=== PATIENT | female | born 1980 | race Caucasian/White ===

== ENCOUNTER 2020-02-08 06:37 | Day surgery (SDC) | payer OTHER ==
[~2020-02-08 06:37] MED LIST: Lactated Ringers 1,000 ML IV SCH
[2020-02-08] MEDS ORDERED: Scopolamine 1.5 MG Transdermal Patch TRDERM PRN (07:22)
--- NOTE | 2020-02-08 07:26 | PCM.PREANE ---
Preanesthetic Assessment - Anesthesia/Transfusion/Family Hx Anesthesia History: Prior Anesthesia Reaction Type of Anesthesia Reaction: Excessive Nausea/Vomiting Family History of Anesthesia Reaction: No Transfusion History: No Prior Transfusion(s) Intubation History: Unknown - Review of Systems General: No Symptoms Pulmonary: No Symptoms Cardiovascular: No Symptoms Gastrointestinal: No Symptoms Neurological: No Symptoms Other: Reports: None - Physical Assessment Height: 5 ft 2 in Weight: 52.163 kg ASA Class: 2 Mental Status: Alert & Oriented x3 Airway Class: Mallampati = 1 Dentition: Reports: Normal Dentition (veneers x6 upper front teeth) Thyro-Mental Finger Breadths: 3 Mouth Opening Finger Breadths: 3 ROM/Head Extension: Full Lungs: Clear to Auscultation, Normal Respiratory Effort Cardiovascular: Regular Rate, Regular Rhythm - Allergies Allergies/Adverse Reactions: Allergies Allergy/AdvReac Type Severity Reaction Status Date / Time codeine Allergy Hives Verified 02/04/20 11:40 Sulfa (Sulfonamide Allergy Hives Verified 02/04/20 11:41 Antibiotics) - Blood Blood Available: No - Anesthesia Plan Pre-Op Medication Ordered: None - Acknowledgements Anesthesia Type Planned: General Anesthesia Pt an Appropriate Candidate for the Planned Anesthesia: Yes Alternatives and Risks of Anesthesia Discussed w Pt/Guardian: Yes Pt/Guardian Understands and Agrees with Anesthesia Plan: Yes PreAnesthesia Questionnaire HEENT History: Reports: Other (See Below) Other HEENT History: states has 6 upper front dental veneers Respiratory History: Reports: None Gastrointestinal History: Reports: Irritable Bowel Syndrome Genitourinary History: Reports: None GYNECOLOGICAL ASSISTANT History: Reports: Other (See Below) (endometriosis, lt. ovarian cyst) Musculoskeletal History: Reports: Fracture, Neck Pain, Chronic Other Musculoskeletal History: states had fractured right wrist Neurological History: Reports: Migraines Psychiatric History: Reports: None Endocrine/Metabolic History: Reports: Hypothyroidism Hematologic History: Reports: None Immunologic History: Reports: None Oncologic (Cancer) History: Reports: Malignant Melanoma Other Oncologic History: right ear Dermatologic History: Reports: Eczema, Other (See Below) (fibrocystic breast) - Infectious Disease History Infectious Disease History: Reports: None - Past Surgical History Head Surgeries/Procedures: Reports: None HEENT Surgical History: Reports: Adenoidectomy, Oral Surgery, Tonsillectomy Other HEENT Surgeries/Procedures: wisdom teeth removed, has 1 lower left dental implant Cardiovascular Surgical History: Reports: None GI Surgical History: Reports: None Female Surgical History: Reports: LEEP, Other (See Below) Other Female Surgeries/Procedures: states had left ovary removed and had 2 laparscopic surgeries for endometriosis Endocrine Surgical History: Reports: None Neurological Surgical History: Reports: None Musculoskeletal Surgical History: Reports: Carpal Tunnel, Other (See Below) Other Musculoskeletal Surgeries/Procedures:: states had bilateral carpal, meidal, and ulnar tunnel surgery and ulner nerve transposition Oncologic Surgical History: - SUBSTANCE USE Tobacco Use Status *Q: Never Tobacco User - HOME MEDS Home Medications: Home Meds Cyanocobalamin (Vitamin B-12) [Cyanocobalamin Injection] 1 injection IM ASDIRECTED 02/04/20 [History] Ergocalciferol (Vitamin D2) [Ergocalciferol] 1 tab PO ASDIRECTED 02/04/20 [History] Escitalopram Oxalate 1 tab PO DAILY 02/04/20 [History] Levothyroxine [Synthroid] 1 tab PO DAILY 02/04/20 [History] Onabotulinumtoxina [Botox] 1 injection IM ASDIRECTED 02/04/20 [History] Verapamil [Calan SR] 1 tab PO DAILY 02/04/20 [History] - CURRENT (IN HOUSE) MEDS Current Meds: Current Medications Lactated Ringer's (Ringers, Lactated) 1,000 mls @ 125 mls/hr IV ASDIRECTED [facility]
[2020-02-08] MEDS ORDERED: Midazolam 1 MG/ML 2 ML SDV ONE (07:28)
[2020-02-08] MEDS ORDERED: fentaNYL 250 MCG/5 ML SDV ONE (07:28)
[2020-02-08] MEDS ORDERED: Ondansetron 4 MG/2 ML SDV ONE (07:28)
[2020-02-08] MEDS ORDERED: Lidocaine 2% 5 ML SDV ONE (07:28)
[2020-02-08] MEDS ORDERED: Rocuronium Bromide 50 MG/5 ML Syringe ONE (07:28)
[2020-02-08] MEDS ORDERED: Propofol 200 MG/20 ML SDV ONE (07:28)
[2020-02-08] MEDS ORDERED: Dexamethasone 4 MG/ML 5 ML MDV ONE (07:28)
[2020-02-08] MEDS ORDERED: Octyl 2-Cyanoacrylate 1 Tube ONE (07:31)
[2020-02-08] MEDS ORDERED: Bupivacaine 0.25% 10 ML SDV ONE (07:31)
[2020-02-08] MEDS ORDERED: Ketamine 500 mg/10 ML MDV ONE (07:32)
[2020-02-08 07:39] LABS: BLOOD UREA NITROGEN,BUN 6 mg/dL (7.0-18.0); CHLORIDE,CL 108 mmol/L (98-107); GLUCOSE RANDOM 100 mg/dL (74-106); POTASSIUM,K 4.2 mmol/L (3.5-5.1); SODIUM,NA 141 mmol/L (136-145)
[2020-02-08] MEDS ORDERED: diphenhydrAMINE 50 MG/ML SDV ONE (07:47)
[2020-02-08] MEDS ORDERED: ePHEDrine 50 MG/ML SDV ONE (08:02)
[2020-02-08] MEDS ORDERED: fentaNYL 100 MCG/2 ML SDV IVPUSH PRN (08:36)
[2020-02-08] MEDS ORDERED: Glycopyrrolate 0.2 MG/ML SDV ONE (08:37)
[2020-02-08] MEDS ORDERED: Ketorolac 30 MG/ML SDV ONE (08:37)
[2020-02-08] MEDS ORDERED: Sugammadex Sodium 200 MG/2 ML VIAL ONE (08:44)
--- NOTE | 2020-02-08 09:32 | PCM.POSTAN ---
POST ANESTHESIA ASSESSMENT - MENTAL STATUS Mental Status: Alert, Oriented - VITAL SIGNS Vital Signs: Last Vital Signs Temp 36.5 C 02/08/20 09:08 Pulse 84 02/08/20 09:28 Resp 14 02/08/20 09:28 BP 111/65 02/08/20 09:28 Pulse Ox 98 02/08/20 09:28 - RESPIRATORY Respiratory Status: Respiratory Rate WNL, Airway Patent, O2 Saturation Stable - CARDIOVASCULAR CV Status: Pulse Rate WNL, Blood Pressure Stable - GASTROINTESTINAL GI Status: No Symptoms - PAIN Pain Score: 4 - POST OP HYDRATION Hydration Status: Adequate & Stable
--- NOTE | 2020-02-08 09:37 | PCM.OPNOTE ---
- General Post-Op/Procedure Note Date of Surgery/Procedure: 02/08/20 Operative Procedure(s): laparoscopic left salpingoophorectomy with lysis of adhesions and ablation of endometriosis. Findings: dense adhesions between the left ovary and medial leaf of the broad ligament above the level of the ureter, with associated dark implants of endometriosis over lying the ureter. There were multiple small dark implants of endometriosis in the posterior cul de sac, left uterosacral ligament and right ovarian fossa, that were ablated with the harmonic scalpel The cecum had some surrounding adhesions, appendix not identified liver appears normal. Pre Op Diagnosis: pelvic pain, endometriosis, pelvic adhesions. Post-Op Diagnosis: Same Anesthesia Technique: General ET Tube Primary Surgeon: Rekha Cortez Secondary Surgeon: Alysa Morrissey Anesthesia Provider: Demetra Nazario Polyethylene Bag Machine Operator: Maura Ledezma Reason Polyethylene Bag Machine Operator Was Necessary: Known adhesions on prior operative report, anticipated possible need for lysis of bowel adhesions by general surgeon Pathology: left tube and ovary Fluid Replacement, Intraop: 1,100 EBL in mLs: 5 Complications: None Known Condition: Good Free Text/Narrative:: Intake & Output 02/07/20 02/08/20 02/08/20 22:59 06:59 14:59 Intake Total 1150 Output Total 100 Balance 1050
[2020-02-08] MEDS ORDERED: Acetaminophen 1,000 MG in Premix Bag 1 BAG IV ONE (10:17)
--- NOTE | 2020-02-08 10:39 | PCM48HPAN ---
Post Anesthesia Note - EVALUATION WITHIN 48HRS OF ANESTHETIC Vital Signs in Normal Range: Yes Patient Participated in Evaluation: Yes Respiratory Function Stable: Yes Airway Patent: Yes Cardiovascular Function Stable: Yes Hydration Status Stable: Yes Pain Control Satisfactory: Yes Nausea and Vomiting Control Satisfactory: Yes Mental Status Recovered: Yes Vital Signs: Last Vital Signs Temp 36.5 C 02/08/20 09:08 Pulse 84 02/08/20 09:28 Resp 14 02/08/20 09:28 BP 111/65 02/08/20 09:28 Pulse Ox 98 02/08/20 09:28 - COMMENTS/OBSERVATIONS Free Text/Narrative:: No anesthesia problems
--- NOTE | 2020-02-08 13:13 | OR ---
SURGEON: Rekha Cortez M.D. DATE OF PROCEDURE: 02/08/2020 PREOPERATIVE DIAGNOSIS: Pelvic pain in the left adnexal region with a known history of pelvic adhesions and a known history of endometriosis. POSTOPERATIVE DIAGNOSES: 1. Pelvic endometriosis. 2. Pelvic adhesions. PRIMARY SURGEON: Rekha Cortez MD DIRECTOR AGRICULTURAL SERVICES: Alysa Morrissey MD ANESTHESIA: General endotracheal. FLUIDS: 1100 mL of crystalloid. ESTIMATED BLOOD LOSS: Minimal. PROCEDURE PERFORMED: Laparoscopic left salpingo-oophorectomy with lysis of adhesions and ablation of endometriosis. COMPLICATIONS: None known. DISPOSITION: Stable, to Recovery. BRIEF HISTORY: This is a 39-year-old female with a known history of endometriosis. She has previously had laparoscopic-proven endometriosis, and she had a left ovarian cystectomy in the past with documented adhesions. She continued to have severe pain in the left lower quadrant which is both continuous, but exacerbated with her cycle, and she desires to have the left ovary and tube removed and treatment of endometriosis as is safe during laparoscopic surgery. Risks were discussed including bleeding; infection; injury to bowel, bladder, blood vessels, or other organs; risk of thromboembolic event; and risk of anesthesia. She also understands that there is a possibility of requiring a laparotomy if the ovary is adhesed immediately on the ureter or if there are extensive bowel adhesions. I did discuss the case with Dr. Morrissey. I had the patient proceed with a bowel prep preoperatively, and Dr. Morrissey agreed to assist me with the case in case bowel involvement was found. Additionally, she understands that if endometriosis is in a place that cannot be treated surgically, she may need followup treatment with medication. Understanding all these risks and issues, she does desire to proceed. DESCRIPTION OF PROCEDURE: With the patient in dorsal lithotomy position, under adequate general endotracheal anesthesia, the abdomen was prepped with chlorhexidine. The perineum and vagina were prepped with Betadine and draped in the usual fashion for laparoscopic surgery. The bladder was drained with a red Pires catheter. SCDs were in place. The arms were tucked. The abdomen was draped, and an appropriate time-out was held. Bimanual examination revealed a mobile 6-week size uterus. Speculum was placed in the vagina. Hulka tenaculum was placed onto the cervix. The power mule operator's gloves were changed after the speculum was removed, and attention was turned to the umbilicus where 10 mL of 0.25% Marcaine was injected inferior to the umbilicus. A vertical 1 cm incision was made with a scalpel. The anterior abdominal wall was elevated, and Metzenbaum scissors and hemostats were utilized to dissect down to the level of the fascia which was identified and was tagged with 0 Polysorb. The fascial incision was made vertically using Rm scissors, and the peritoneum was entered bluntly. The disposable Chad port was then placed, and the abdomen was insufflated. There was no evidence of any trauma from the port placement site. The patient was placed in Trendelenburg position, and the uterus was elevated. The pelvis was inspected. An additional port was placed in the midline at the site of a prior incision approximately 3 cm cephalad from the pubic symphysis utilizing the Marcaine and making a 5 mm incision and then a 5 mm port. A new port was placed 2 cm medial and cephalad from the anterior superior iliac spine on the left. Using this, the pelvis was inspected with findings as follows: The anterior cul- de-sac was clear. The right tube and ovary appeared normal. There was a small retraction near the right ureter. The right uterosacral ligament appeared normal. The posterior cul-de-sac had approximately 6 implants of dark endometriosis. The left uterosacral ligament had an implant of dark endometriosis. The left ovary was densely adherent to the medial leaf of the broad ligament just above the level of the ureter. Below this and overlying the ureter were extensive dark implants of endometriosis. There was dense adhesion between the ovary and the medial leaf of the broad ligament. The left tube appeared normal. The liver appeared normal. The cecum had surrounding filmy adhesions, but appeared normal. The appendix was not identified. The LigaSure was then utilized to safely cauterize and incise the dense adhesion between the ovary and the medial leaf of the broad ligament. I was able to pull the tissue well away from the level of the ureter in order to accomplish the dissection. The infundibulopelvic ligament was then doubly cauterized using the LigaSure and cut. The mesosalpinx was followed proximally to the uterine cornua. The tube was transected at the uterine cornua, and the tube and ovary were then removed with an EndoCatch bag. The pelvis was then inspected. The ball tip was used with the Harmonic Scalpel to coagulate and evaporate the small implants of endometriosis in the posterior cul-de-sac and the left uterosacral ligament. This being completed, the incision site where the tube and ovary were removed was inspected under low pressure and was hemostatic. The abdomen was completely desufflated. The ports were removed. The retained suture on the fascia of the infraumbilical incision was utilized to close the fascia in a running fashion, and the skin was incisions were closed with subcuticular suture of 4-0 Monocryl. Final sponge, needle, and instrument counts were correct. The Hulka tenaculum was removed from the cervix. The cervix was hemostatic. There were no known complications. The patient was transferred to Recovery in good condition. BOOGIE / SIENNA /[id number]
== END 2020-02-08 10:45 | disposition home or self-care (01) ==
LOC: MW.SDS 06:37
PROVIDERS: ATTEND Obstetrics & Gynecology
DX: N80.8 Other endometriosis (principal); N73.6 Female pelvic peritoneal adhesions (postinfective); E03.9 Hypothyroidism, unspecified; Z79.890 Hormone replacement therapy; Z79.899 Other long term (current) drug therapy; Z98.890 Other specified postprocedural states; Z88.5 Allergy status to narcotic agent; Z88.2 Allergy status to sulfonamides
CPT/HCPCS: 58661; 58662; 80048; 84703; 85027; 86850; 86900; 86901; A9270; J0131; J1100; J1200; J1885; J2001; J2250; J2405; J2704; J3010; J3490; J7120; 00840; 88305

== ENCOUNTER 2021-02-06 08:10 | Day surgery (SDC) | payer OTHER ==
--- NOTE | 2021-02-06 08:07 | PCM.PREANE ---
Preanesthetic Assessment - Anesthesia/Transfusion/Family Hx Anesthesia History: Prior Anesthesia Without Reaction Transfusion History: No Prior Transfusion(s) Intubation History: Unknown - Review of Systems General: No Symptoms Pulmonary: No Symptoms Cardiovascular: No Symptoms Gastrointestinal: No Symptoms Neurological: No Symptoms Other: Reports: None - Physical Assessment NPO Status Date: 02/06/21 NPO Status Time: 00:00 Height: 5 ft 2.5 in Weight: 126 lb ASA Class: 2 Mental Status: Alert & Oriented x3 Airway Class: Mallampati = 1 Dentition: Reports: Normal Dentition Thyro-Mental Finger Breadths: 3 Mouth Opening Finger Breadths: 3 ROM/Head Extension: Full Lungs: Clear to Auscultation, Normal Respiratory Effort Cardiovascular: Regular Rate, Regular Rhythm - Allergies Allergies/Adverse Reactions: Allergies Allergy/AdvReac Type Severity Reaction Status Date / Time codeine Allergy Hives Verified 02/02/21 09:03 Sulfa (Sulfonamide Allergy Hives Verified 02/02/21 09:03 Antibiotics) - Acknowledgements Anesthesia Type Planned: General Anesthesia Pt an Appropriate Candidate for the Planned Anesthesia: Yes Alternatives and Risks of Anesthesia Discussed w Pt/Guardian: Yes Pt/Guardian Understands and Agrees with Anesthesia Plan: Yes PreAnesthesia Questionnaire HEENT History: Reports: Other (See Below) Other HEENT History: 1 dental implant Cardiovascular History: Reports: None Respiratory History: Reports: None Gastrointestinal History: Reports: Irritable Bowel Syndrome Genitourinary History: Reports: None 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 Musculoskeletal History: Reports: Fracture Other Musculoskeletal History: states had fractured right wrist Neurological History: Reports: Migraines Psychiatric History: Reports: None Endocrine/Metabolic History: Reports: Hypothyroidism Hematologic History: Reports: None Immunologic History: Reports: None Oncologic (Cancer) History: Reports: Malignant Melanoma Other Oncologic History: right ear Dermatologic History: Reports: Eczema, Other (See Below) Other Dermatologic History: dermatitis - Infectious Disease History Infectious Disease History: Reports: None - Past Surgical History Head Surgeries/Procedures: Reports: None HEENT Surgical History: Reports: Adenoidectomy, Oral Surgery, Tonsillectomy Other HEENT Surgeries/Procedures: wisdom teeth removed, has 1 lower left dental implant Cardiovascular Surgical History: Reports: None Respiratory Surgical History: Reports: None GI Surgical History: Reports: None Female Surgical History: Reports: Breast Implant, LEEP, Other (See Below) Other Female Surgeries/Procedures: states had left ovary removed and had 2 laparscopic surgeries for endometriosis, hx laparoscopic left S&O with lysis of adhesions and ablation of endometriosis Endocrine Surgical History: Reports: None Neurological Surgical History: Reports: None Musculoskeletal Surgical History: Reports: Carpal Tunnel, Other (See Below) Other Musculoskeletal Surgeries/Procedures:: states had bilateral carpal, meidal, and ulnar tunnel surgery and ulner nerve transposition Dermatological Surgical History: Reports: Skin Biopsy - SUBSTANCE USE Tobacco Use Status *Q: Never Tobacco User - HOME MEDS Home Medications: Home Meds Escitalopram Oxalate 5 mg PO DAILY 02/04/20 [History] Levothyroxine [Synthroid] 50 mcg PO DAILY 02/04/20 [History] Verapamil [Calan SR] 120 mg PO DAILY 02/04/20 [History] Doxycycline [Vibramycin] 100 mg PO BID 02/02/21 [History] L.acidoph,Paracasei, B.lactis [Probiotic] 1 tab PO DAILY 02/02/21 [History] Multivitamin 1 tab PO DAILY 02/02/21 [History] - CURRENT (IN HOUSE) MEDS Current Meds: Current Medications Albuterol (Albuterol 0.083% 2.5 Mg/3 Ml Neb Soln) 2.5 mg NEB ONETIME PRN PRN Reason: Wheezing Droperidol (Droperidol 5 Mg/2 Ml Sdv) 0.625 mg IVPUSH ONETIME PRN PRN Reason: Nausea/Vomiting Fentanyl (Fentanyl 100 Mcg/2 Ml Sdv) 50 mcg IVPUSH Q5M PRN PRN Reason: Pain (mild 1-3) Hydromorphone HCl (Hydromorphone 1 Mg/Ml Syringe) 1 mg IVPUSH Q10M PRN PRN Reason: Pain (moderate 4-6) Metoclopramide HCl (Metoclopramide 10 Mg/2 Ml Sdv) 10 mg IVPUSH ONETIME PRN PRN Reason: Nausea/Vomiting Morphine Sulfate (Morphine 4 Mg/Ml Vial) 2 mg IVPUSH Q10M PRN PRN Reason: Pain (severe 7-10) Naloxone HCl (Naloxone 0.4 Mg/Ml Sdv) 0.1 mg IVPUSH ASDIRECTED PRN PRN Reason: Respiratory Depression Ondansetron HCl (Ondansetron 4 Mg/2 Ml Sdv) 4 mg IVPUSH ONETIME PRN PRN Reason: Nausea/Vomiting Discontinued Medications Cefazolin Sodium/Dextrose 1 gm (/ Premix) 50 mls @ 100 mls/hr IV ONETIME ONE Stop: 02/06/21 07:40 Scopolamine (Scopolamine 1.5 Mg Transdermal Patch) Confirm Administered Dose 1.5 mg .ROUTE .STK-MED ONE Stop: 02/06/21 06:21
[~2021-02-06 08:10] MED LIST changes: +Albuterol 0.083% 2.5 MG/3 ML Neb Soln NEB PRN; +HYDROmorphone 1 MG/ML Syringe IVPUSH PRN; -Lactated Ringers 1,000 ML IV SCH; +Metoclopramide 10 MG/2 ML SDV IVPUSH PRN; +Morphine 4 MG/ML VIAL IVPUSH PRN; +Naloxone 0.4 MG/ML SDV IVPUSH PRN; +Ondansetron 4 MG/2 ML SDV IVPUSH PRN; +Scopolamine 1.5 MG Transdermal Patch ONE; +ceFAZolin 1 GM in Premix Bag 1 BAG IV ONE; +fentaNYL 100 MCG/2 ML SDV IVPUSH PRN
[2021-02-06] MEDS ORDERED: fentaNYL 100 MCG/2 ML SDV ONE (08:44)
[2021-02-06] MEDS ORDERED: diphenhydrAMINE 50 MG/ML SDV ONE (08:45)
[2021-02-06] MEDS ORDERED: Famotidine 20 MG/2 ML SDV ONE (08:46)
[2021-02-06] MEDS ORDERED: Sodium Chloride 0.9% 20 ML ONE (08:50)
[2021-02-06] MEDS ORDERED: Pregabalin 75 MG Cap ONE (08:54)
[2021-02-06] MEDS ORDERED: fentaNYL 250 MCG/5 ML SDV ONE (08:56)
[2021-02-06] MEDS ORDERED: Propofol 200 MG/20 ML SDV ONE (08:56)
[2021-02-06 09:14] LABS: BLOOD UREA NITROGEN,BUN 12 mg/dL (7.0-18.0); CARBON DIOXIDE,CO2 25.1 mmol/L (21.0-32.0); CHLORIDE,CL 106 mmol/L (98-107); GLUCOSE RANDOM 100 mg/dL (74-106); POTASSIUM,K 3.9 mmol/L (3.5-5.1); SODIUM,NA 141 mmol/L (136-145)
[2021-02-06] MEDS ORDERED: Lactated Ringers 1,000 ML IV SCH (09:30)
[2021-02-06] MEDS ORDERED: Bupivacaine 0.25% 10 ML SDV ONE (09:51)
[2021-02-06] MEDS ORDERED: Methylene Blue 50 MG/10 ML Ampule ONE (09:51)
[2021-02-06] MEDS ORDERED: Ondansetron 4 MG/2 ML SDV ONE (12:12)
[2021-02-06] MEDS ORDERED: Ketorolac 30 MG/ML SDV ONE (12:12)
[2021-02-06] MEDS ORDERED: Dexamethasone 4 MG/ML 5 ML MDV ONE (12:12)
[2021-02-06] MEDS ORDERED: Glycopyrrolate 0.2 MG/ML SDV ONE (12:12)
[2021-02-06] MEDS ORDERED: Rocuronium Bromide 50 MG/5 ML Syringe ONE (12:12)
[2021-02-06] MEDS ORDERED: ePHEDrine 50 MG/ML SDV ONE (12:12)
[2021-02-06] MEDS ORDERED: Sugammadex Sodium 200 MG/2 ML VIAL ONE (12:12)
[2021-02-06] MEDS ORDERED: Fluorescein 5 ML Vial ONE (12:13)
[2021-02-06] MEDS ORDERED: HYDROmorphone 2 MG/ML Syringe ONE ×2 (12:44→13:00)
--- NOTE | 2021-02-06 13:15 | PCM48HPAN ---
Post Anesthesia Note - EVALUATION WITHIN 48HRS OF ANESTHETIC Vital Signs in Normal Range: Yes Patient Participated in Evaluation: Yes Respiratory Function Stable: Yes Airway Patent: Yes Cardiovascular Function Stable: Yes Hydration Status Stable: Yes Pain Control Satisfactory: Yes Nausea and Vomiting Control Satisfactory: Yes Mental Status Recovered: Yes Vital Signs: Last Vital Signs Temp 97.2 F 02/06/21 13:02 Pulse 98 02/06/21 13:12 Resp 9 L 02/06/21 13:12 BP 104/62 02/06/21 13:12 Pulse Ox 100 02/06/21 13:12
--- NOTE | 2021-02-06 13:15 | PCM.POSTAN ---
POST ANESTHESIA ASSESSMENT - MENTAL STATUS Mental Status: Somnolent - VITAL SIGNS Vital Signs: Last Vital Signs Temp 97.2 F 02/06/21 13:02 Pulse 98 02/06/21 13:12 Resp 9 L 02/06/21 13:12 BP 104/62 02/06/21 13:12 Pulse Ox 100 02/06/21 13:12 - RESPIRATORY Respiratory Status: Respiratory Rate WNL, Airway Patent, O2 Saturation Stable - CARDIOVASCULAR CV Status: Pulse Rate WNL, Blood Pressure Stable - GASTROINTESTINAL GI Status: No Symptoms - POST OP HYDRATION Hydration Status: Adequate & Stable
[2021-02-06] MEDS ORDERED: Acetaminophen/oxyCODONE 325-5 MG Tab PO PRN ×2 (13:16)
[2021-02-06] MEDS ORDERED: Ondansetron 4 MG/2 ML SDV IVPUSH PRN (13:16)
[2021-02-06] MEDS ORDERED: Ketorolac 30 MG/ML SDV IVPUSH ONE (13:16)
[2021-02-06] MEDS ORDERED: Promethazine 25 MG/ML SDV IM PRN (13:16)
--- NOTE | 2021-02-06 13:16 | PCM.OPNOTE ---
- General Post-Op/Procedure Note Date of Surgery/Procedure: 02/06/21 Operative Procedure(s): laparoscopically assisted vaginal hysterectomy with right salpingoophorectomy and cystoscopy. Findings: extensive powder burn appearing endometriosis, left pelvic peritoneum over lying ureter, Bahman Masters window right anterior pelvis. On cystoscopy there is copious flow of bright green urine bilaterally and no evidence of trauma to bladder mucosa Pre Op Diagnosis: Endometriosis, pelvic pain Post-Op Diagnosis: Same Anesthesia Technique: General ET Tube Primary Surgeon: Rekha Cortez Secondary Surgeon: Aniceto Rosen Anesthesia Provider: Danilo Hardy Oral And Maxillofacial Surgeon: Akhil Angeles Pathology: uterus and right tube and ovary Fluid Replacement, Intraop: 2,300 Output, Urine Amount: 125 EBL in mLs: 50 Complications: None Known. Condition: Good
[2021-02-06] MEDS ORDERED: diphenhydrAMINE 50 MG/ML SDV IVPUSH ONE (13:43)
[2021-02-06] MEDS: Ketorolac 30 MG/ML SDV IVPUSH SCH (20:16)
[2021-02-06] MEDS ORDERED: Doxycycline 100 MG Cap PO SCH (21:00)
[2021-02-07] MEDS: Ketorolac 30 MG/ML SDV IVPUSH SCH ×3 (00:43→06:38)
[2021-02-07] MEDS ORDERED: Levothyroxine 50 MCG Tab PO SCH (07:30)
[2021-02-07 08:12] LABS: BLOOD UREA NITROGEN,BUN 6 mg/dL (7.0-18.0); CARBON DIOXIDE,CO2 22.9 mmol/L (21.0-32.0); CHLORIDE,CL 105 mmol/L (98-107); GLUCOSE RANDOM 122 mg/dL (74-106); POTASSIUM,K 3.7 mmol/L (3.5-5.1); SODIUM,NA 137 mmol/L (136-145)
--- NOTE | 2021-02-07 08:20 | PCM.SURGPN ---
- General Info Date of Service: 02/07/21 Date of Surgery/Procedure: 02/06/21 POD#: 1 Post-Op Diagnosis: endometriosis Functional Status: Reports: Pain Controlled, Tolerating Diet, Ambulating, Urinating - Review of Systems General: Reports: No Symptoms HEENT: Reports: No Symptoms Pulmonary: Reports: No Symptoms Cardiovascular: Reports: No Symptoms Gastrointestinal: Reports: No Symptoms Genitourinary: Reports: No Symptoms Musculoskeletal: Reports: No Symptoms Skin: Reports: No Symptoms Neurological: Reports: No Symptoms Psychiatric: Reports: No Symptoms - Patient Data Vitals - Most Recent: Last Vital Signs Temp 36.1 C 02/07/21 05:00 Pulse 89 02/07/21 05:00 Resp 15 02/07/21 05:00 BP 93/60 02/07/21 05:00 Pulse Ox 93 L 02/07/21 05:00 Weight - Most Recent: 57.153 kg I&O - Last 24 Hours: Intake & Output 02/06/21 02/07/21 02/07/21 22:59 06:59 14:59 Intake Total 120 1000 Output Total 350 2750 Balance -230 -1750 Lab Results Last 24 Hrs: Laboratory Results - last 24 hr 02/06/21 02/06/21 02/06/21 Range/Units 08:00 08:00 08:15 WBC 6.25 (4.0-11.0) K/uL RBC 4.52 (4.30-5.90) M/uL Hgb 14.8 (12.0-16.0) g/dL Hct 43.2 (36.0-46.0) % MCV 95.6 (80.0-98.0) fL MCH 32.7 H (27.0-32.0) pg MCHC 34.3 (31.0-37.0) g/dL RDW Std Deviation 40.9 (28.0-62.0) fl RDW Coeff of Bhavna 12 (11.0-15.0) % Plt Count 329 (150-400) K/uL MPV 8.80 (7.40-12.00) fL Neut % (Auto) (48.0-80.0) % Lymph % (Auto) (16.0-40.0) % Platte % (Auto) (0.0-15.0) % Eos % (Auto) (0.0-7.0) % Baso % (Auto) (0.0-1.5) % Neut # (Auto) (1.4-5.7) K/uL Lymph # (Auto) (0.6-2.4) K/uL Platte # (Auto) (0.0-0.8) K/uL Eos # (Auto) (0.0-0.7) K/uL Baso # (Auto) (0.0-0.1) K/uL Nucleated RBC % 0.0 /100WBC Nucleated RBCs # 0 K/uL Sodium (136-145) mmol/L Potassium (3.5-5.1) mmol/L Chloride (98-107) mmol/L Carbon Dioxide (21.0-32.0) mmol/L BUN (7.0-18.0) mg/dL Creatinine (0.6-1.0) mg/dL Est Cr Clr Drug Dosing mL/min Estimated GFR (MDRD) ml/min Glucose (74-106) mg/dL Calcium (8.5-10.1) mg/dL HCG, Qual (NEG) Urine RBC 0-2 (0-2/HPF) Urine WBC 0-2 (0-5/HPF) Ur Epithelial Cells FEW (NONE-FEW) Urine Bacteria FEW (NEGATIVE) SARS-CoV-2 RNA (DESIRAE) NEGATIVE (NEGATIVE) Blood Type Antibody Screen 02/06/21 02/06/21 02/06/21 Range/Units 08:15 08:15 08:15 WBC (4.0-11.0) K/uL RBC (4.30-5.90) M/uL Hgb (12.0-16.0) g/dL Hct (36.0-46.0) % MCV (80.0-98.0) fL MCH (27.0-32.0) pg MCHC (31.0-37.0) g/dL RDW Std Deviation (28.0-62.0) fl RDW Coeff of Bhavna (11.0-15.0) % Plt Count (150-400) K/uL MPV (7.40-12.00) fL Neut % (Auto) (48.0-80.0) % Lymph % (Auto) (16.0-40.0) % Platte % (Auto) (0.0-15.0) % Eos % (Auto) (0.0-7.0) % Baso % (Auto) (0.0-1.5) % Neut # (Auto) (1.4-5.7) K/uL Lymph # (Auto) (0.6-2.4) K/uL Platte # (Auto) (0.0-0.8) K/uL Eos # (Auto) (0.0-0.7) K/uL Baso # (Auto) (0.0-0.1) K/uL Nucleated RBC % /100WBC Nucleated RBCs # K/uL Sodium 141 (136-145) mmol/L Potassium 3.9 (3.5-5.1) mmol/L Chloride 106 (98-107) mmol/L Carbon Dioxide 25.1 (21.0-32.0) mmol/L BUN 12 (7.0-18.0) mg/dL Creatinine 0.8 (0.6-1.0) mg/dL Est Cr Clr Drug Dosing 76.39 mL/min Estimated GFR (MDRD) > 60.0 ml/min Glucose 100 (74-106) mg/dL Calcium 9.1 (8.5-10.1) mg/dL HCG, Qual NEGATIVE (NEG) Urine RBC (0-2/HPF) Urine WBC (0-5/HPF) Ur Epithelial Cells (NONE-FEW) Urine Bacteria (NEGATIVE) SARS-CoV-2 RNA (DESIRAE) (NEGATIVE) Blood Type O POSITIVE Antibody Screen NEGATIVE 02/07/21 02/07/21 Range/Units 06:36 06:36 WBC 10.25 (4.0-11.0) K/uL RBC 3.52 L (4.30-5.90) M/uL Hgb 11.4 L (12.0-16.0) g/dL Hct 33.8 L (36.0-46.0) % MCV 96.0 (80.0-98.0) fL MCH 32.4 H (27.0-32.0) pg MCHC 33.7 (31.0-37.0) g/dL RDW Std Deviation 41.2 (28.0-62.0) fl RDW Coeff of Bhavna 12 (11.0-15.0) % Plt Count 272 (150-400) K/uL MPV 9.20 (7.40-12.00) fL Neut % (Auto) 76.0 (48.0-80.0) % Lymph % (Auto) 17.1 (16.0-40.0) % Platte % (Auto) 6.6 (0.0-15.0) % Eos % (Auto) 0.1 (0.0-7.0) % Baso % (Auto) 0.2 (0.0-1.5) % Neut # (Auto) 7.8 H (1.4-5.7) K/uL Lymph # (Auto) 1.8 (0.6-2.4) K/uL Platte # (Auto) 0.7 (0.0-0.8) K/uL Eos # (Auto) 0.0 (0.0-0.7) K/uL Baso # (Auto) 0.0 (0.0-0.1) K/uL Nucleated RBC % 0.0 /100WBC Nucleated RBCs # 0 K/uL Sodium 137 (136-145) mmol/L Potassium 3.7 (3.5-5.1) mmol/L Chloride 105 (98-107) mmol/L Carbon Dioxide 22.9 (21.0-32.0) mmol/L BUN 6 L (7.0-18.0) mg/dL Creatinine 0.6 (0.6-1.0) mg/dL Est Cr Clr Drug Dosing 101.85 mL/min Estimated GFR (MDRD) > 60.0 ml/min Glucose 122 H (74-106) mg/dL Calcium 8.1 L (8.5-10.1) mg/dL HCG, Qual (NEG) Urine RBC (0-2/HPF) Urine WBC (0-5/HPF) Ur Epithelial Cells (NONE-FEW) Urine Bacteria (NEGATIVE) SARS-CoV-2 RNA (DESIRAE) (NEGATIVE) Blood Type Antibody Screen Med Orders - Current: Current Medications Doxycycline Hyclate (Doxycycline 100 Mg Cap) 100 mg PO BID [facility] Last Admin: 02/06/21 20:20 Dose: Not Given Documented by: Escitalopram Oxalate (Escitalopram 10 Mg Tab) 5 mg PO DAILY [facility] Estradiol (Estradiol 0.05 Mg/24 Hr Weekly Patch) 0.05 mg TRDERM Q7D [facility] Lactated Ringer's (Ringers, Lactated) 1,000 mls @ 100 mls/hr IV ASDIRECTED [facility] Last Admin: 02/06/21 09:35 Dose: 100 mls/hr Documented by: Ketorolac Tromethamine (Ketorolac 30 Mg/Ml Sdv) 30 mg IVPUSH Q6H [facility] Stop: 02/11/21 13:16 Last Admin: 02/07/21 06:38 Dose: 30 mg Documented by: Levothyroxine Sodium (Levothyroxine 50 Mcg Tab) 50 mcg PO ACBREAKFAST [facility] Last Admin: 02/07/21 06:39 Dose: 50 mcg Documented by: Ondansetron HCl (Ondansetron 4 Mg/2 Ml Sdv) 4 mg IVPUSH Q6H PRN PRN Reason: Nausea/Vomiting Oxycodone/Acetaminophen (Acetaminophen/Oxycodone 325-5 Mg Tab) 1 tab PO Q4H PRN PRN Reason: Pain (moderate 4-6) Oxycodone/Acetaminophen (Acetaminophen/Oxycodone 325-5 Mg Tab) 2 tab PO Q4H PRN PRN Reason: Pain (moderate 4-6) Promethazine HCl (Promethazine 25 Mg/Ml Sdv) 25 mg IM Q6H PRN PRN Reason: Nausea/Vomiting Verapamil HCl (Verapamil 240 Mg Tab.Er) 120 mg PO DAILY [facility] Discontinued Medications Albuterol (Albuterol 0.083% 2.5 Mg/3 Ml Neb Soln) 2.5 mg NEB ONETIME PRN PRN Reason: Wheezing Bupivacaine HCl (Bupivacaine 0.25% 10 Ml Sdv) Confirm Administered Dose 20 ml .ROUTE .STK-MED ONE Stop: 02/06/21 09:52 Dexamethasone (Dexamethasone 4 Mg/Ml 5 Ml Mdv) Confirm Administered Dose 20 mg .ROUTE .STK-MED ONE Stop: 02/06/21 12:13 Diphenhydramine HCl (Diphenhydramine 50 Mg/Ml Sdv) Confirm Administered Dose 50 mg .ROUTE .STK-MED ONE Stop: 02/06/21 08:46 Diphenhydramine HCl (Diphenhydramine 50 Mg/Ml Sdv) 12.5 mg IVPUSH ONETIME ONE Stop: 02/06/21 13:44 Last Admin: 02/06/21 13:44 Dose: 12.5 mg Documented by: Droperidol (Droperidol 5 Mg/2 Ml Sdv) 0.625 mg IVPUSH ONETIME PRN PRN Reason: Nausea/Vomiting Ephedrine Sulfate (Ephedrine 50 Mg/Ml Sdv) Confirm Administered Dose 50 mg .ROUTE .STK-MED ONE Stop: 02/06/21 12:13 Famotidine (Famotidine 20 Mg/2 Ml Sdv) Confirm Administered Dose 20 mg .ROUTE .STK-MED ONE Stop: 02/06/21 08:47 Fentanyl (Fentanyl 100 Mcg/2 Ml Sdv) 50 mcg IVPUSH Q5M PRN PRN Reason: Pain (mild 1-3) Fentanyl (Fentanyl 100 Mcg/2 Ml Sdv) Confirm Administered Dose 100 mcg .ROUTE .STK-MED ONE Stop: 02/06/21 08:45 Fentanyl (Fentanyl 250 Mcg/5 Ml Sdv) Confirm Administered Dose 250 mcg .ROUTE .STK-MED ONE Stop: 02/06/21 08:57 Fluorescein Sodium (Fluorescein 5 Ml Vial) Confirm Administered Dose 5 ml .ROUTE .STK-MED ONE Stop: 02/06/21 12:14 Glycopyrrolate (Glycopyrrolate 0.2 Mg/Ml Sdv) Confirm Administered Dose 0.4 mg .ROUTE .STK-MED ONE Stop: 02/06/21 12:13 Hydromorphone HCl (Hydromorphone 1 Mg/Ml Syringe) 1 mg IVPUSH Q10M PRN PRN Reason: Pain (moderate 4-6) Hydromorphone HCl (Hydromorphone 2 Mg/Ml Syringe) Confirm Administered Dose 2 mg .ROUTE .STK-MED ONE Stop: 02/06/21 12:45 Hydromorphone HCl (Hydromorphone 2 Mg/Ml Syringe) Confirm Administered Dose 2 mg .ROUTE .STK-MED ONE Stop: 02/06/21 13:01 Cefazolin Sodium/Dextrose 1 gm (/ Premix) 50 mls @ 100 mls/hr IV ONETIME ONE Stop: 02/06/21 07:40 Last Admin: 02/06/21 17:26 Dose: Not Given Documented by: Sodium Chloride (Normal Saline) Confirm Administered Dose 20 mls @ as directed .ROUTE .STK-MED ONE Stop: 02/06/21 08:51 Cefazolin Sodium/Dextrose (Ancef) Confirm Administered Dose 50 mls @ as directed .ROUTE .STK-MED ONE Stop: 02/06/21 12:13 Acetaminophen (Ofirmev 1000 Mg/100 Ml) Confirm Administered Dose 100 mls @ as directed .ROUTE .STK-MED ONE Stop: 02/06/21 12:13 Ketorolac Tromethamine (Ketorolac 30 Mg/Ml Sdv) Confirm Administered Dose 30 mg .ROUTE .STK-MED ONE Stop: 02/06/21 12:13 Ketorolac Tromethamine (Ketorolac 30 Mg/Ml Sdv) 30 mg IVPUSH ONETIME ONE Stop: 02/06/21 13:17 Last Admin: 02/06/21 13:49 Dose: Not Given Documented by: Methylene Blue (Methylene Blue 50 Mg/10 Ml Ampule) Confirm Administered Dose 50 mg .ROUTE .STK-MED ONE Stop: 02/06/21 09:52 Metoclopramide HCl (Metoclopramide 10 Mg/2 Ml Sdv) 10 mg IVPUSH ONETIME PRN PRN Reason: Nausea/Vomiting Morphine Sulfate (Morphine 4 Mg/Ml Vial) 2 mg IVPUSH Q10M PRN PRN Reason: Pain (severe 7-10) Naloxone HCl (Naloxone 0.4 Mg/Ml Sdv) 0.1 mg IVPUSH ASDIRECTED PRN PRN Reason: Respiratory Depression Ondansetron HCl (Ondansetron 4 Mg/2 Ml Sdv) 4 mg IVPUSH ONETIME PRN PRN Reason: Nausea/Vomiting Ondansetron HCl (Ondansetron 4 Mg/2 Ml Sdv) Confirm Administered Dose 4 mg .ROUTE .STK-MED ONE Stop: 02/06/21 12:13 Pregabalin (Pregabalin 75 Mg Cap) Confirm Administered Dose 75 mg .ROUTE .STK- MED ONE Stop: 02/06/21 08:55 Last Admin: 02/06/21 09:17 Dose: 75 mg Documented by: Propofol (Propofol 200 Mg/20 Ml Sdv) Confirm Administered Dose 600 mg .ROUTE .STK-MED ONE Stop: 02/06/21 08:57 Rocuronium Hope (Rocuronium Hope 50 Mg/5 Ml Syringe) Confirm Administered Dose 50 mg .ROUTE .STK-MED ONE Stop: 02/06/21 12:13 Scopolamine (Scopolamine 1.5 Mg Transdermal Patch) Confirm Administered Dose 1.5 mg .ROUTE .STK-MED ONE Stop: 02/06/21 06:21 Last Admin: 02/06/21 09:16 Dose: 1.5 mg Documented by: Sugammadex Sodium (Sugammadex Sodium 200 Mg/2 Ml Vial) Confirm Administered Dose 200 mg .ROUTE .STK-MED ONE Stop: 02/06/21 12:13 - Exam Wound/Incisions: Dressing Dry and Intact General: Alert, Oriented Neck: Supple Lungs: Clear to Auscultation, Normal Respiratory Effort Cardiovascular: Regular Rate, Regular Rhythm GI/Abdominal Exam: Normal Bowel Sounds, Soft, Non-Tender, No Organomegaly, No Distention, No Abnormal Bruit Extremities: Non-Tender, No Pedal Edema Skin: Warm, Dry, Intact Psy/Mental Status: Alert, Normal Affect, Normal Mood Sepsis Event Note - Evaluation Sepsis Screening Result: No Definite Risk - Focused Exam Vital Signs: Vital Signs Temp Pulse Resp BP Pulse Ox 02/07/21 05:00 36.1 C 89 15 93/60 93 L 02/07/21 01:00 36.1 C 90 15 89/61 L 93 L - Problem List & Annotations (1) Endometriosis of left broad ligament SNOMED Code(s): 10499564138120219 Code(s): N80.3 - ENDOMETRIOSIS OF PELVIC PERITONEUM Status: Acute Current Visit: No - Problem List Review Problem List Initiated/Reviewed/Updated: Yes - My Orders Last 24 Hours: Active Orders 24 hr Category Date Time Status Patient Status [ADT] Routine ADT 02/06/21 13:16 Active Antiembolic Devices [RC] PER UNIT ROUTINE Care 02/06/21 13:17 Active Notify Provider Intake and Out [RC] ASDIRECTED Care 02/06/21 13:16 Active Notify Provider Vital Signs [RC] ASDIRECTED Care 02/06/21 13:16 Active Oxygen Therapy [RC] ASDIRECTED Care 02/06/21 13:16 Active RT Incentive Spirometry [RC] Q2HWA Care 02/06/21 13:16 Active Ready for Discharge [RC] PER UNIT ROUTINE Care 02/07/21 08:00 Active Up With Assistance [RC] PER UNIT ROUTINE Care 02/06/21 13:16 Active Up ad Ladonna [RC] PER UNIT ROUTINE Care 02/06/21 13:16 Active Vital Signs [RC] Q4H Care 02/06/21 13:16 Active Regular Diet [DIET] Diet 02/06/21 Dinner Active Acetaminophen/oxyCODONE [Percocet 325-5 MG] Med 02/06/21 13:16 Active 1 tab PO Q4H PRN Acetaminophen/oxyCODONE [Percocet 325-5 MG] Med 02/06/21 13:16 Active 2 tab PO Q4H PRN Doxycycline [Vibramycin] Med 02/06/21 21:00 Active 100 mg PO BID Escitalopram [Lexapro] Med 02/07/21 09:00 Active 5 mg PO DAILY Ketorolac [Toradol] Med 02/06/21 13:30 Active 30 mg IVPUSH Q6H Lactated Ringers [Ringers, Lactated] 1,000 ml Med 02/06/21 09:30 Active IV ASDIRECTED Levothyroxine [Synthroid] Med 02/07/21 07:30 Active 50 mcg PO ACBREAKFAST Ondansetron [Zofran] Med 02/06/21 13:16 Active 4 mg IVPUSH Q6H PRN Promethazine [Phenergan] Med 02/06/21 13:16 Active 25 mg IM Q6H PRN Verapamil [Calan SR] Med 02/07/21 09:00 Active 120 mg PO DAILY estradioL [Climara] Med 02/06/21 13:30 Active 0.05 mg TRDERM Q7D Peripheral IV Discontinue [OM.PC] Routine Oth 02/06/21 13:16 Ordered Sequential Compression Device [OM.PC] Per Unit Routine Oth 02/06/21 13:16 Ordered Resuscitation Status Routine Resus Stat 02/06/21 13:16 Ordered Medication Orders Doxycycline Hyclate (Doxycycline 100 Mg Cap) 100 mg PO BID [facility] Last Admin: 02/06/21 20:20 Dose: Not Given Documented by: PASTGEN Escitalopram Oxalate (Escitalopram 10 Mg Tab) 5 mg PO DAILY [facility] Estradiol (Estradiol 0.05 Mg/24 Hr Weekly Patch) 0.05 mg TRDERM Q7D [facility] Lactated Ringer's (Ringers, Lactated) 1,000 mls @ 100 mls/hr IV ASDIRECTED [facility] Last Admin: 02/06/21 09:35 Dose: 100 mls/hr Documented by: CELINE Ketorolac Tromethamine (Ketorolac 30 Mg/Ml Sdv) 30 mg IVPUSH Q6H [facility] Stop: 02/11/21 13:16 Last Admin: 02/07/21 06:38 Dose: 30 mg Documented by: Admin: 02/07/21 01:07 Dose: 30 mg Documented by: Admin: 02/07/21 00:43 Dose: Not Given Documented by: Admin: 02/06/21 20:16 Dose: 30 mg Documented by: POPEYE Levothyroxine Sodium (Levothyroxine 50 Mcg Tab) 50 mcg PO ACBREAKFAST [facility] Last Admin: 02/07/21 06:39 Dose: 50 mcg Documented by: ANILA Ondansetron HCl (Ondansetron 4 Mg/2 Ml Sdv) 4 mg IVPUSH Q6H PRN PRN Reason: Nausea/Vomiting Oxycodone/Acetaminophen (Acetaminophen/Oxycodone 325-5 Mg Tab) 1 tab PO Q4H PRN PRN Reason: Pain (moderate 4-6) Oxycodone/Acetaminophen (Acetaminophen/Oxycodone 325-5 Mg Tab) 2 tab PO Q4H PRN PRN Reason: Pain (moderate 4-6) Promethazine HCl (Promethazine 25 Mg/Ml Sdv) 25 mg IM Q6H PRN PRN Reason: Nausea/Vomiting Verapamil HCl (Verapamil 240 Mg Tab.Er) 120 mg PO DAILY [facility] - Assessment Assessment (Free Text/Narrative):: POD#1 after LAVH/RSO for endometriosis. Stable, tolerating diet, ambulating, pain is well controlled. Operative findings reviewed. - Plan Plan (Free Text/Narrative):: Dismiss to home, discharge instructions given. Continue on low dose estradiol patch at this time. Discussed risks and benefits of estrogen and risk of osteoporosis with early menopause. She will continue at this time.
[2021-02-07] MEDS ORDERED: Verapamil 240 MG Tab.ER PO SCH (09:00)
[2021-02-07] MEDS ORDERED: Escitalopram 10 MG Tab PO SCH (09:00)
--- NOTE | 2021-02-07 12:51 | OR ---
SURGEON: Rekha Cortez M.D. DATE OF PROCEDURE: 02/06/2021 PREOPERATIVE DIAGNOSES: Endometriosis and pelvic pain. POSTOPERATIVE DIAGNOSES: Endometriosis and pelvic pain. PROCEDURES: Laparoscopically assisted vaginal hysterectomy with right salpingo-oophorectomy, cystoscopy. PRIMARY SURGEON: Rekha Cortez M.D. PAPER SAMPLE CLERK: Aniceto Neil MD. ANESTHESIA: General endotracheal. FLUIDS: 2300 mL crystalloid. URINE OUTPUT: 125 mL. EBL: 50. COMPLICATIONS: None known. PATHOLOGY SPECIMEN: Uterus and right tube and ovary. DISPOSITION: Stable to Recovery. OPERATIVE FINDINGS: Extensive endometriosis on the left pelvic peritoneum immediately overlying the left ureter. This has the appearance of a powder burn with the color of black, brown, and bluish. There was also an Scott-Masters window on the right anterior abdominal peritoneum anterior to the round ligament insertion. The right tube and ovary appeared normal. There were no significant pelvic adhesions on cystoscopy. There was no evidence of any bladder trauma. There was copious flow of bright green dye from bilateral ureteral orifices after IV fluorescein was given. COMPLICATIONS: None known. DISPOSITION: Stable to Recovery. BRIEF HISTORY: This is a 40-year-old female. She has a long known history of endometriosis as well as infertility. She has tried multiple treatments including multiple prior laparoscopies for ablation of endometriosis. She has had a left salpingo- oophorectomy as her pain is in the left pelvis primarily. Additionally, she has been treated with Lupron which provided her with significant relief as well as a high dose of Orilissa, which also worked well for her. However, she at this point desires to proceed with definitive therapy with removal of her 1 remaining ovary as well as hysterectomy. Risks that were discussed included bleeding; infection; injury to bowel, bladder, blood vessels, ureters, or other organs; risk of thromboembolic event; risk of anesthesia; risk of change in sexual function. Understanding all these risks, she does desire to proceed. DESCRIPTION OF PROCEDURE: With the patient in dorsal lithotomy position, under adequate general endotracheal anesthesia, the perineum and vagina were prepped with Betadine, and the abdomen was prepped with chlorhexidine and draped in usual fashion for abdominal surgery. SCDs were in place. Harp catheter had been placed and backfilled with 30 mL of dilute indigo carmine. An appropriate time-out was held and she received 2 g of Ancef IV. After prepping and draping, bimanual examination revealed a mobile anteverted 6 weeks size uterus. Speculum was placed into the vagina. The cervix was gently dilated to an 8 mm Hegar dilator. The ZUMI uterine manipulator was placed to the uterine fundus. The balloon was filled with 3 mL of air. The speculum was removed from the vagina. The purification operator helper's gloves were changed. Attention was then turned abdominally, where the previous incision in the left lower quadrant was carefully identified and prior to insufflating, I did proceed with marking this area to avoid a second incision near the same site. With this completed, the umbilical area was treated with Marcaine. A 5 mm incision was made with a scalpel. Anterior abdominal wall was elevated. Veress needle was inserted. Opening pressure was 2 mmHg. CO2 was insufflated to develop an adequate pneumoperitoneum of 12 mmHg. A 5 mm port was placed. The laparoscope was placed into the abdominal cavity and there was no evidence of any trauma from the port placement. The left lower quadrant incision was then made with a scalpel and a 5 mm port was placed under direct visualization. Another port was placed 2 cm medial and cephalad from the anterior superior iliac spine on the right. Note was made of an Scott-Masters window inferior to the port site placement. The uterus was elevated. Findings were as noted above. The ureters were easily identified bilaterally with extensive endometriotic implants over the left ureter. The uterus was elevated. The right tube and ovary were grasped and the infundibulopelvic ligament was cross clamped, cut, and doubly cauterized and ligated using the LigaSure. Proceeding proximally along the mesosalpinx to the round ligament using the LigaSure, the round ligament was doubly cauterized and cut. Using the LigaSure, the anterior leaf of the broad ligament was opened and gently incised with the LigaSure extending inferiorly to the peritoneal fold on the lower uterine segment, which was dissected using sharp and blunt dissection and the LigaSure to incise the peritoneum. The posterior leaf of the broad ligament was also gently retracted and the skeletonized uterine vessels were then doubly cauterized and cut with the LigaSure to the base of the broad ligament just above the uterosacral ligament. This was repeated on the left side, however, with the prior salpingo-oophorectomy, the round ligament was doubly cauterized and cut. The anterior leaf was opened, meeting the peritoneum, the peritoneal incision from the other side. The posterior peritoneum was also dissected free, skeletonizing the uterine vessels which were then doubly cauterized and cut down to the level of the uterosacral ligament. With this being completed, the abdomen was desufflated. Attention was turned vaginally where a weighted speculum was placed posteriorly. The bladder was released off the indigo carmine. The vagina was retracted. The cervix was grasped with a Ina tenaculum. The cervix was circumscribed using electrocautery. The vaginal mucosa was pushed away from the cervix. The posterior cul-de-sac was entered sharply using scissors and a Bran-Auvard speculum was placed posteriorly. The anterior cul-de-sac was entered sharply and bluntly entering at the level of the peritoneal fold, which had previously been opened. A right angle retractor was placed anteriorly. The uterosacral ligaments were then clamped, cut, and ligated using a Lalo ligature of 2-0 Polysorb. There was a small additional pedicle on the right and left, which were clamped, cut, and ligated using a Lalo ligature of 2-0 Polysorb. The uterus and right tube and ovary were then delivered vaginally. The pelvic pedicles were carefully inspected and were hemostatic. The retained uterosacral ligaments were ligated to the vaginal apices bilaterally. The vaginal cuff was closed with a running lock suture of 0 Polysorb. The catheter was removed. Cystoscopy was performed after IV fluorescein and Lasix had been given, and there was excellent visualization of the bladder. There was no evidence of any bladder trauma. Bilateral ureteral orifices were identified and had excellent flow of bright green urine after the IV fluorescein had been given. This being completed, a new catheter was placed. Speculum was placed in the vagina again to confirm hemostasis. There was no blood in the vagina. Therefore, purification operator helper's gloves were changed. Attention was turned abdominally, where the pelvis was copiously irrigated and carefully inspected under high and low pressure. There was no areas of bleeding or trauma identified, and therefore the abdomen was desufflated. The ports were removed. The skin was closed with subcuticular suture of 4-0 Monocryl and final sponge, needle, and instrument counts were reported as correct. There were no known complications. The patient was transferred to Recovery in good condition. BOOGIE EL /[id number]
== END 2021-02-07 09:35 | disposition home or self-care (01) ==
LOC: MW.SDS 08:10 → MW.MS 14:06 → MW.SDS 02-07 09:35
PROVIDERS: ATTEND Obstetrics & Gynecology
DX: D25.1 Intramural leiomyoma of uterus (principal); N83.11 Corpus luteum cyst of right ovary; N83.311 Acquired atrophy of right ovary; N87.9 Dysplasia of cervix uteri, unspecified; N80.9 Endometriosis, unspecified; G43.909 Migraine, unspecified, not intractable, without status migrainosus; E03.9 Hypothyroidism, unspecified; Z98.890 Other specified postprocedural states; Z88.5 Allergy status to narcotic agent; Z88.2 Allergy status to sulfonamides; Z01.812 Encounter for preprocedural laboratory examination; Z20.822 Contact with and (suspected) exposure to COVID-19; Z79.899 Other long term (current) drug therapy
CPT/HCPCS: 36415; 58552; 80048; 81001; 84703; 85025; 85027; 86850; 86900; 86901; 87635; A9270; J0131; J0690; J1100; J1170; J1200; J1885; J2704; J3010; J3490; J7030; J7120; 00944; 01953; J2405; U0002